=== PATIENT | female | born 1950 | race Caucasian/White ===

== ENCOUNTER 2023-08-18 14:00 | Outpatient (CLI) | payer MEDICARE, OTHER ==
--- NOTE | 2023-08-18 15:12 | XRAY Report ---
PROCEDURE: Chest 2V INDICATIONS: COUGH TECHNIQUE: 2 views of the chest were acquired. COMPARISON: None. FINDINGS: Surgical changes and devices: None. Lungs and pleura: No pleural effusions or pneumothorax. Lungs are clear. Mediastinum: Mediastinal contours appear normal. Heart size is mildly prominent. Bones and chest wall: No suspicious bony lesions. Overlying soft tissues appear unremarkable. IMPRESSION: No acute cardiopulmonary process. Reviewed by: Anushka Collado MD on 08/18/2023 3:10 PM PDT Approved by: Anushka Collado MD on 08/18/2023 3:10 PM PDT Station ID: [id number]
== END 2023-08-18 14:15 | disposition home or self-care (01) ==
LOC: DI.N 14:00
PROVIDERS: ATTEND Family Medicine
DX: R05.9 Cough, unspecified (principal)